=== PATIENT | male | born 1950 | race African-American/Black ===

== ENCOUNTER 2016-11-10 03:48 | Emergency (ER) | payer MEDICARE, MEDICAID ==
[~2016-11-10] VITALS: Ht 165.1 cm; Wt 81.8 kg
[~2016-11-10 03:48] MED LIST: ALPR1TAB7 PO; ARIP5TAB8 PO; GABA-531 PO; LOSA50TA37 PO; METO25 PO; MIRT15 PO; MULT1CAP32 PO; ONDA4 PO; OXYC10 PO; PANT40TA25 PO; SITA50 PO; TAMS0.4C32 PO
[2016-11-10] MEDS ORDERED: INSNOV SQ (04:00)
[2016-11-10 04:37] LABS: EOSINOPHILS # (AUTO) 0.15 K/uL (0.00-0.70); HEMOGLOBIN 10.4 g/dL (13.5-17.5); LYMPHOCYTES # (AUTO) 0.7 K/uL (1.0-4.8); LYMPHOCYTES % (AUTO) 6.7 % (22.0-44.0); MEAN CORPUSCULAR HEMOGLOBIN 29.7 pg (26.0-34.0); MEAN CORPUSCULAR HGB CONC 32.5 G/dL (31.0-37.0); MEAN CORPUSCULAR VOLUME 91 fL (80-100); MONOCYTES # (AUTO) 0.7 K/uL (0.1-1.0); MONOCYTES % (AUTO) 6.3 % (2.0-9.0); NEUTROPHILS # (AUTO) 9.2 K/uL (1.8-7.7); NEUTROPHILS % (AUTO) 85.6 % (40.0-70.0); PLATELET COUNT (AUTO) 278 K/uL (150-450); RED CELL DISTRIBUTION WIDTH 16.3 % (11.5-14.5); WHITE BLOOD COUNT (AUTO) 10.8 K/uL (4.5-11.0)
[2016-11-10 04:45] LABS: ANION GAP 8 mmol/L (8-16); CALCIUM, TOTAL 8.6 mg/dL (8.8-10.5); CARBON DIOXIDE 29 mmol/L (22-29); CHLORIDE 101 mmol/L (98-107); CREATININE 0.95 mg/dL (0.60-1.30); GLOMERULAR FILTR. RATE CALC > 60 mL/min (>60); POTASSIUM 4.8 mmol/L (3.5-5.1); SODIUM SERUM 138 mmol/L (136-145); UREA NITROGEN, BLOOD 14 mg/dL (7-18)
[2016-11-10 04:49] LABS: INR 1.1 (0.9-1.1); PROTHROMBIN TIME 11.6 SEC (9.4-11.6)
[2016-11-10 04:51] LABS: ALANINE AMINOTRANSFERASE 81 U/L (12-78); ALBUMIN 2.8 g/dL (3.4-5.0); ASPARTATE AMINOTRANSFERASE 47 U/L (15-37); BILIRUBIN,TOTAL 2.4 mg/dL (0.1-1.0); TOTAL PROTEIN, SERUM 6.7 g/dL (6.4-8.2)
[2016-11-10] MEDS ORDERED: IOVERSOL 350 MG/ML 100 ML VIAL ONE (05:11)
[2016-11-10] MEDS ORDERED: SODIUM CHLORIDE 0.9% 100 ML ONE (05:12)
[2016-11-10] MEDS ORDERED: DIATRIZOATE MEGLU/SOD 660/100 MG/ML 120 ML BOTTLE ONE (05:12)
[2016-11-10] MEDS ORDERED: ONDANSETRON HCL 4 MG/2 ML VIAL IVP ONE ×2 (05:15→15:15)
[2016-11-10] MEDS ORDERED: HYDROmorphone 2 MG/ML SYRINGE IVP ONE ×2 (05:15→07:30)
[2016-11-10 05:31] LABS: APPEARANCE,URINE CLEAR (CLEAR); GLUCOSE, URINE (UA) NEGATIVE (NEGATIVE); KETONES,URINE TRACE mg/dL (NEGATIVE); LEUKOCYTE ESTERASE ,URINE TRACE (NEGATIVE); OCCULT BLOOD,URINE NEGATIVE (NEGATIVE); PROTEIN,URINE TRACE (NEGATIVE)
[2016-11-10 05:37] LABS: ADD UA MICROSCOPIC YES
[2016-11-10 05:54] LABS: RBC,URINE 0-2 /HPF (0-2)
[2016-11-10 05:55] LABS: SQUAMOUS EPITHELIAL CELL,UR Rare /LPF (None Seen)
[2016-11-10] MEDS ORDERED: GADOBUTROL 1 MMOL/ML 10 ML VIAL IVP ONE (10:42)
[2016-11-10] MEDS ORDERED: MORPHINE SULFATE 4 MG/ML SYRINGE IVP ONE (15:15)
[2016-11-10 16:36] VITALS: BP 125/68
== END 2016-11-10 17:08 | disposition short-term general hospital (02) ==
LOC: EMS 03:50
DX: K80.50 Calculus of bile duct without cholangitis or cholecystitis without obstruction (principal); K21.9 Gastro-esophageal reflux disease without esophagitis; E11.9 Type 2 diabetes mellitus without complications; Z79.4 Long term (current) use of insulin
CPT/HCPCS: 36415; 74177; 74183; 76700; 80053; 81001; 82962; 83690; 84484; 85025; 85610; 85730; 93005; 96374; 96375; 96376; 99285; A9585; J1170; J2270; J2405; J7050; Q9963; Q9967